=== PATIENT | female | born 1975 | race Two or more races ===

== ENCOUNTER 2024-06-29 15:29 | Emergency (ER) | payer OTHER, MEDICAID, SELFPAY ==
[2024-06-29 16:22] VITALS: BP 152/94; PULSE 77; RESP 20; TEMP 36.7; O2SAT 95; BMI 38.5
--- NOTE | 2024-06-29 16:50 | PD.EDURI ---
Upper Respiratory Inf. RME/HPI General Chief Complaint: Flu Like Symptoms Stated Complaint: Cough Time Seen by Provider: 06/29/24 15:54 Source: patient Arrival date/time: 06/29/24 15:29 This is a 49-year-old female with complaints of cough intermittently for 3 weeks. Patient reports she is currently has been on antibiotics and inhaler however her symptoms have not improved. Cough x 3 week, pt. on ABX but states she is still coughing. No fever no chills no dyspnea no chest pain Limitations: no limitations Related Data Home Medications ?Medication ?Instructions ?Recorded ?Confirmed atorvastatin 80 mg tablet 1 tab PO DAILY 03/04/22 03/04/22 ergocalciferol (vitamin D2) 1,250 1 cap PO QWEEK 03/04/22 03/04/22 mcg (50,000 unit) capsule (Vitamin D2) furosemide 40 mg tablet 2 tab PO DAILY 03/04/22 03/04/22 levothyroxine 25 mcg tablet 1 tab PO QAM 03/04/22 03/04/22 Previous Rx's ?Medication ?Instructions ?Recorded fluconazole 150 mg tablet 150 mg PO Q3D 2 doses #2 tabs 02/11/24 nystatin 100,000 unit/gram topical 1 applic topical BID #30 grams 02/11/24 ointment prednisone 50 mg tablet 50 mg PO QDAY 4 days #4 tabs 06/29/24 promethazine-DM 6.25 mg-15 mg/5 mL 5 ml PO Q6H #118 mL 06/29/24 oral syrup Allergies Allergy/AdvReac Type Severity Reaction Status Date / Time No Known Allergies Allergy Verified 08/12/20 10:18 Review of Systems Review of Systems Systems Reviewed: All systems reviewed, normal except as documented Narrative Review of Systems: Gen: No fever, no chills, no weight loss EYES: No discharge, no visual changes, no pain HEENT: No ear pain, no congestion, no sore throat PULM: No shortness of breath, ++ cough, ++chest congestion CV: No chest pain, no dyspnea on exertion, no palpitations GI: No nausea, no vomiting, no diarrhea, no pain, no constipation : No frequency, no urgency,? no dysuria Musc/skel: No joint pain, no back pain Skin: No rash? Psyc: No hallucinations, no depression Heme/Lymph: No easy bleeding or bruising tendencies Neuro: No weakness, no headache Past Medical History Past Medical History NEUROLOGIC: Negative Neurological Disorders CARDIAC: Positive Hypercholesterolemia; Negative Congestive Heart Failure RESPIRATORY: Negative Chronic Obstructive Pulmonary Disease (COPD) GASTROINTESTINAL: Negative Gastrointestinal Disorders or Hepatitis GENITOURINARY: Negative Genitourinary Disorders or Renal Disease MUSCULOSKELETAL: Negative Musculoskeletal Disorders ENDOCRINE: Positive Hypoglycemia; Negative Diabetes Mellitus Type 1 or Diabetes Mellitus Type 2 HEMATOLOGIC: Negative Blood Disorders OTHER HISTORY: Negative Autoimmune Disease, Anesthesia Reactions, MRSA, Clostridium Difficile or Cancer Surgical History SURGICAL: Negative Endocrine Surgery, Abdominal Surgery or Joint Replacement Social History SMOKING STATUS: Never smoker SUBSTANCE USE: does not use ED Exam General Limitations: Present no limitations General appearance: Present alert and in no apparent distress Head Head exam: Present atraumatic Eye Eye exam: Present normal appearance, PERRL and EOMI ENT ENT exam: Present normal exam, normal oropharynx and mucous membranes moist Neck Neck exam: Present normal inspection, full ROM and trachea midline Chest Chest inspection: Present normal inspection and symmetric chest wall rise Respiratory Respiratory exam: Present wheezes (mild ); Absent respiratory distress, stridor or accessory muscle use Cardiovascular Cardiovascular exam: Present regular rate, normal rhythm and normal heart sounds Abdominal Exam Abdominal exam: Present soft and normal bowel sounds Extremities Exam Extremities exam: Present normal inspection and full ROM Back Exam Back exam: Present normal inspection and full ROM Neurological Exam Neurological exam: Present alert, oriented X3 and CN II-XII intact Psychiatric Psychiatric exam: Present normal affect and normal mood Skin Skin exam: Present warm, dry, intact and normal color Course Quality Measures none Orders Category Date Time Status XR chest 2V Stat Exams 06/29/24 16:50 Completed Albuterol/Ipratr Rt Maral [Duoneb Rt Maral] Med 06/29/24 16:50 Discontinued 3 ml INH X1 ONE predniSONE Med 06/29/24 16:49 Discontinued 60 mg PO X1 ONE Vital Signs Vital signs: Vital Signs Temperature 98.0 F 06/29/24 16:22 Pulse Rate 77 06/29/24 16:22 Respiratory Rate 20 06/29/24 16:22 Blood Pressure 152/94 H 06/29/24 16:22 Pulse Oximetry (%) 95 06/29/24 16:22 Oxygen Delivery Method Room Air 06/29/24 16:22 Upper Respiratory Infection MDM Narrative MDM Narrative:: 49-year-old female with complaints of 3 week history of coughing. And is currently on Augmentin and uses inhaler at home. X-ray was obtained today which is negative for any pneumonia. Will treat outpatient for bronchitis. I will add cough syrup, and prednisone for 3 days. First dose given today. Patient received a breathing treatment for a 5 mild expiratory wheeze symptoms improved. No alterations in vitals no hypoxia no respiratory distress patient will be discharged home for follow-up with her PCP. Patient data External records reviewed:: [facility] previous records Clinical information provided by:: patient Social determinants that could affect healthcare access:: none Patient has the following chronic illnesses:: no How is presenting disease/condition affected by chronic disease/condition?: no chronic disease Evaluation data The following diagnostics were reviewed and interpreted by me:: radiology exam(s) Lab and/or radiology exams considered but not ordered:: no Interpretation Summary: Examination: PA lateral chest 2 views TECHNIQUE: Upright PA lateral chest 2 views Exam date and time: June 29, 2024 at 1656 hours Comparison August 14, 2022 INDICATIONS: Shortness of breath coughing beginning today. FINDINGS: Normal heart size No pneumonia or pulmonary edema Fat pad at the left cardiophrenic angle Moderate osteopenia IMPRESSION: No interval pneumonia or pulmonary edema Medications / Prescriptions Medications or Prescriptions considered but not ordered:: Rx ordered Medication administrations:: Medication Administration History Discontinued Medications Albuterol/Ipratropium (Albuterol/Ipratropium (Duoneb) Rt Maral 3 Ml Nebu) 3 ml INH X1 ONE Stop: 06/29/24 16:51 Last Admin: 06/29/24 17:06 Dose: 3 ml Documented By: LUISA Prednisone (Prednisone 20 Mg Tablet) 60 mg PO X1 ONE Stop: 06/29/24 16:50 Last Admin: 06/29/24 18:44 Dose: 60 mg Documented By: All medications administered and effective Consultations Consultation(s) initiated? (list below): No Diagnosis Upper Respiratory Differential Diagnosis: upper respiratory infection, croup, viral infection, bronchitis, influenza and pharyngitis Most likely diagnosis given after review of the tests above:: viral bronchitis Admission Indicated Admission indicated?: not indicated Admission Request Was there a request for admission?: No Disposition Plan Disposition Plan: Discharge Discharge Attestation Discharge Attestation: The patient and all family members were given an opportunity to ask questions and understood the discharge instructions. Discharge instructions specifically effects, indications for sooner follow up or return to the emergency department, and the expected course of current diagnosis. Patient condition: Stable Discharge Plan Plan Patient Disposition: HOME (Self Care) Patient condition on transfer: Stable Prescriptions/Referrals Prescriptions/Med Rec: New prednisone 50 mg tablet 50 mg PO QDAY 4 Days Qty: 4 0RF promethazine-DM 6.25-15 mg/5 mL syrup 5 ml PO Q6H Qty: 118 0RF No Action furosemide 40 mg tablet 2 tab PO DAILY atorvastatin 80 mg tablet 1 tab PO DAILY Patient Comments: take 1 tablet by mouth once daily levothyroxine 25 mcg tablet 1 tab PO QAM Patient Comments: take 1 tablet by mouth every morning ON AN EMPTY STOMACH ergocalciferol (vitamin D2) [Vitamin D2] 1,250 mcg (50,000 unit) capsule 1 cap PO QWEEK Patient Comments: take 1 capsule by mouth every week nystatin 100,000 unit/gram ointment 1 applic topical BID Qty: 30 1RF fluconazole 150 mg tablet 150 mg PO Q3D 0 Days Qty: 2 0RF Referrals: No Primary/Family,Physician [Primary Care Provider] - In 1 week Problem List Clinical Impression: Bronchitis Patient/Caregiver Discharge Instructions Discharge Activity: as per physical therapy Education Materials: ED Bronchitis with Wheezing (Adult) Additional Instructions: Complete la terapia con antibi?ticos enviada por anaya PCP. Comience anaya prednisona ma?silvia. Contin?e usando anaya inhalador. Regrese al departamento de emergencia si hay alg?n empeoramiento de los s?ntomas. Cambio en la condici?n. complete the antibiotic therapy sent by your PCP. Start your prednisone tomorrow. Continue use your inhaler. Return to the emergency department there is any worsening symptoms change in condition Print Language: Irish Stand Alone Forms: Marce Award Info., Patient Portal Info Letter PA/COCONUT COOKER Supervising Physician PA/KEO Supervising Physician: Dr Leon
[2024-06-29] MEDS: ALBUTEROL/IPRATROPIUM (Duoneb) RT SOL 3 ML NEBU INH (17:06)
[2024-06-29 17:08] VITALS: PULSE 79; RESP 20; O2SAT 100
[2024-06-29] MEDS: predniSONE 20 MG TABLET 60 MG PO (18:44)
== END 2024-06-29 18:46 | disposition home or self-care (01) ==
PROVIDERS: Emergency Provider Emergency Medicine
DX: J40 Bronchitis, not specified as acute or chronic (principal); F17.210 Nicotine dependence, cigarettes, uncomplicated
CPT/HCPCS: 71046; 94640; 99283; A9270; J7512